=== PATIENT | female | born 1935 | race Caucasian/White ===

== ENCOUNTER 2016-12-13 13:56 | Inpatient (IN) ==
[2016-12-13] MEDS ORDERED: TYLENOL PO PRN (14:03)
[2016-12-13] MEDS ORDERED: ZOFRAN IV PRN (14:03)
[2016-12-13] MEDS ORDERED: LOVENOX SUBQ SCH (14:15)
[2016-12-13] MEDS: POTASSIUM CHLORIDE 10 MEQ in 1/2 NS 1,000 ML IV SCH (16:20)
[2016-12-13 16:47] LABS: URINE SOURCE CATH
[2016-12-13 16:59] LABS: BILIRUBIN URINE NEGATIVE (NEGATIVE); BLOOD URINE SMALL (NEGATIVE); COLOR YELLOW; GLUCOSE URINE NEGATIVE (NEGATIVE); LEUKOCYTES URINE LARGE (NEGATIVE); NITRITE URINE NEGATIVE (NEGATIVE); PH URINE 5.5; PROTEIN URINE 30 mg/dL (NEGATIVE); SP GRAVITY URINE 1.015; TURBIDITY URINE HAZY (CLEAR); UROBILINOGEN URINE NORMAL (NORMAL)
[2016-12-13 17:05] LABS: UR EPITHELIAL CELLS <10 /HPF (<10); URINE BACTERIA 4+ /HPF; URINE CULTURE NEEDED? YES; URINE MICRO REVIEW NEEDED? YES; URINE RBC <10 /HPF (<10); URINE WBC TNTC /HPF (<10)
[2016-12-13 17:21] LABS: URINE CASTS NONE SEEN; URINE CRYSTALS NONE SEEN
[2016-12-13 17:22] LABS: URINE SMALL ROUND CELLS NONE SEEN
[2016-12-13 19:54] LABS: HEMOGLOBIN A1C 5.7 % (4.8-6.0)
[2016-12-13 21:26] LABS: MANUAL DIFF NEEDED? NO
[2016-12-13 21:41] LABS: BASO% 0.2 % (0.0-0.8); EOS# 0.11 X1000 (0.0-0.7); EOS% 1.1 % (0.0-10.0); HEMATOCRIT 39.4 % (37.0-47.0); HEMOGLOBIN 12.6 g/dL (12.0-16.0); IMM GRAN# 0.03 X1000 (0.0-0.04); IMM GRAN% 0.3 % (0.0-0.5); LYMPH# 1.98 X1000 (1.2-3.4); LYMPH% 20.4 % (20.5-51.1); MCH 27.4 PG (27-31); MCV 85.7 FL (81-99); MONO# 1.16 X1000 (0.11-0.59); MONO% 11.9 % (1.7-9.3); MPV 11.3 FL (7.4-10.4); NEUT% 66.1 % (42.2-75.2); PLT 198 X1000 (130-400)
[2016-12-13 21:58] LABS: AGAP 10; ALBUMIN 3.5 g/dL (3.5-5.0); ALKALINE PHOSPHATASE 72 U/L (32-104); BUN 38 mg/dL (8-22); CALCIUM 9.2 mg/dL (8.8-10.2); CHLORIDE 103 mmol/L (98-107); COSMO 299; GOT 29 U/L (10-30); GPT 22 U/L (10-36); POTASSIUM 3.4 mmol/L (3.5-5.1); SODIUM 145 mmol/L (136-145); TCO2 32 mmol/L (25-35); TOTAL BILIRUBIN 0.57 mg/dL (0.20-1.00); TOTAL PROTEIN 6.7 g/dL (6.3-8.3)
[2016-12-13] MEDS: CRESTOR PO SCH (22:48)
[2016-12-13] MEDS: NAMENDA PO SCH (22:48)
[2016-12-13] MEDS: ROCEPHIN 1 GM/NS 1 GM/50 ML IVPB IV SCH (22:54)
--- NOTE | 2016-12-13 23:26 | HISTORY AND PHYSICAL ---
INDICATION FOR ADMISSION: Altered mental status/increasing confusion and lower extremity edema and swelling. HISTORY OF PRESENT ILLNESS: Ms. 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 She presents via ambulance to the office at the request of an interested family member who felt that the patient was having a stroke. This was not recommended as the standard protocol. If the patient was having a medical emergency putting her life, limb or site at risk the emergency room would have been a better evaluation. However the niece of the family directed the patient to the office rather than to the emergency room. Upon further questioning of the sister as medical power of compliance attorney, there has been some nonspecific increase in left lower extremity edema of undetermined clinical significance with some increased pain and mild redness. Also perhaps some more increasing confusion and possible concerns for UTI. The niece had expressed concerns for possible stroke. Knowing the patient's baseline this does not appear to be an active or evolving stroke. The patient is admitted to the internal medicine service for further diagnostic workup based on increasing infusion, probable UTI, left lower extremity edema, nonspecific substernal chest pain and questionable dehydration. MEDICATIONS ON ADMISSION: Including MiraLAX 17 g once daily, Tylenol 325 as needed, Namenda 5 mg 1 p.o. b.i.d., Remeron 30 mg p.o. at bedtime, metformin 500 mg p.o. daily, Crestor 10 mg p.o. daily, Exelon patch 9.5 q.24 once daily, valsartan/hydrochlorothiazide 80/12.5 once daily, Xanax 0.25 mg q.6 hours, metoprolol 50 mg once daily. ALLERGIES: To Lexapro with increased shakiness reported at 5 and 10 mg, Wellbutrin resulting in hallucinations and Seroquel resulting in bizarre and crazy dreams. FAMILY HISTORY: Father 55 [place], mother 91 secondary to fall complications, brother 59 secondary to heart attack and diabetes complications. She has 4 sisters Teresa at 75 without issues, Kimberly 63 without issues, Pat at 73 with arthritis and neuropathy and Suad in 2013. OCCUPATION AND SOCIAL: Patient is retired from [employer] after 40 years in 1995. She remained single the entirety of her life. She is a nonsmoker and a nondrinker. HEALTH MAINTENANCE: Last colonoscopy 2002, last DEXA scan 2014 with osteoporosis of the lumbosacral spine and osteopenia of the left hip. Last eye exam July 2015. Last mammogram is remote in 2004, last Pap smear in 2004. Most recent hemoglobin A1c 2016 at 6.3. Patient with historical stress test in 2005. She has never had a cardiac catheterization. PAST SURGICAL HISTORY: Appendectomy as a teenager, hysterectomy with oophorectomy in 1994, knee surgery on the right in 2008, total knee arthroplasty and left mastectomy secondary to cancer in 1984, a right-sided mastectomy in October 2008. REVIEW OF SYSTEMS: Is unremarkable except that noted within the HPI above. Last annual exam noted to be September 2014. PHYSICAL EXAM: VITAL SIGNS: Blood pressure 130/80, pulse at 101, saturation at 91, temperature 98.6. HEENT: Normocephalic but with dry oral mucosal membranes. Left eye droop is noted. There is no facial droop appreciated on exam. NECK: Soft and supple without lymphadenopathy or bruits. CARDIOVASCULAR: Regular rate and rhythm but somewhat tachycardic. CHEST: Is without wheezes or rhonchi. ABDOMEN: Diffusely and nonspecifically tender without rebound. There is some mild guarding in the suprapubic region. GENITOURINARY/RECTAL: Exams are deferred. EXTREMITY: Shows marked difference in the lower extremity with 42 cm on the left lower extremity and 38 cm at the calf on the right lower extremity. Some nonspecific erythema is also noted in the distal left lower shank. NEUROLOGICAL: Cranial nerves 2-12 are grossly intact. The patient is not alert and oriented towards person, place or time. LABORATORY: Obtained on admission including a positive D-dimer at 6.70 and negative proBNP. Urine is abnormal with protein, blood, leukocytes, white blood cells and 4+ bacteria with clean- catch urine pending. Chemistry is not yet returned and CBC is not yet returned. EKG and chest x- ray are pending. IMPRESSION: An 81-year-old with multiple medical problems with increasing confusion, abnormal urine suggestive of urinary tract infection and nonspecifically elevated D- dimer with left lower extremity unilateral swelling. We will be admitting her to the hospital, reviewing the CMP and the CBC, treating her for urinary tract infection and proceeding with further diagnostic workup and evaluation for lower extremity edema including a venous Doppler ultrasound plus or minus a CT angiogram to rule out the presence of a pulmonary embolism. She historically has had a low vitamin D. This will be checked during this hospitalization and has been historically managed with oral medicine for diabetes. A hemoglobin A1c will be ordered for record. No additional recommendations or concerns at this time. Further diagnostic workup and recommendations pending ongoing evaluation. Total time in office evaluation, coordinating admission, electronic orders ( from office), post-admission evening rounds with family update and dictation of H&P more than 90 minutes total for 12/13/2016 cc: DO AYAZ Alcantar
[2016-12-14] MEDS: XANAX PO PRN ×2 (03:00→18:45)
[2016-12-14] MEDS: POTASSIUM CHLORIDE 10 MEQ in 1/2 NS 1,000 ML IV SCH ×2 (06:12→20:13)
--- NOTE | 2016-12-14 06:33 | EKG Report ---
Test Performed on : 12/14/2016 05:59:37 AM Test Reason : chest pain Blood Pressure : / mmHG Vent. Rate : 097 BPM Atrial Rate : 097 BPM P-R Int : 124 ms QRS Dur : 104 ms QT Int : 374 ms P-R-T Axes : 061 054 111 degrees QTc Int : 474 ms Normal sinus rhythm. Nonspecific T wave abnormality Prolonged QT Abnormal ECG When compared with ECG of 28-JUN-2009 15:21, Questionable change in QRS axis Confirmed by Elizabeth Reynolds MD ([id number]) on 12/14/2016 1:40:34 PM
[2016-12-14 06:40] LABS: INR 1.04
[2016-12-14 07:04] LABS: VITAMIN D 25 HYDROXY 19.4 NG/DL
--- NOTE | 2016-12-14 07:35 | Diag Imaging Result Doc PS360 ---
CHEST-PORTABLE - 12/14/2016 INDICATION: LE edema and swelling TECHNIQUE: COMPARISON: Chest CT 12/29/2011 FINDINGS: Lung volumes are severely low with central crowding. There is probably a trace left basilar pleural effusion. There is a patchy right upper lobe infiltrate.. Heart size remains borderline. Pulmonary vascularity appears grossly normal. IMPRESSION: Patchy right upper lobe infiltrate suggesting pneumonia. Correlate clinically. Electronically signed by Bandar Lopez 12/14/2016 7:32 AM
[2016-12-14] MEDS: GLUCOPHAGE XR PO SCH (09:54)
[2016-12-14] MEDS: POTASSIUM CHLORIDE 20 MEQ/SWI 20 MEQ/100 ML IVPB IV SCH ×2 (10:10→12:00)
[2016-12-14] MEDS: HYDROCHLOROTHIAZIDE PO SCH (10:20)
[2016-12-14] MEDS: TOPROL XL PO SCH (10:20)
[2016-12-14] MEDS: DIOVAN PO SCH (10:20)
[2016-12-14] MEDS: NAMENDA PO SCH ×2 (10:20→20:14)
--- NOTE | 2016-12-14 10:34 | Diag Imaging Result Doc PS360 ---
EXAM: ABDOMEN/PELVIS W/WO CONTRAST - 12/14/2016 HISTORY: right lower quadrant pain TECHNIQUE: With oral contrast. Without and with intravenous contrast. Dose reduction protocol. COMPARISON: None. FINDINGS: There is a large hiatal hernia. There is uncomplicated diverticulosis of the transverse duodenum. There are no substantial abnormalities of the liver, spleen, adrenal glands, or pancreas disease other than mild pancreatic atrophic changes) identified. There are no calcified gallstones or pericholecystic inflammation identified. There is a horseshoe kidney. There is a 1.4 cm cyst at the mid right kidney and there is a 2.9 cm cyst at the upper left kidney. There is no solid renal mass identified. There is no renal stone or hydronephrosis identified. There are no substantial enlarged lymph nodes identified. There is no evidence of bowel obstruction. The appendix by history is surgically absent. There is extensive colonic diverticulosis. There is no evidence of diverticulitis. There is no abscess identified. There is no free air seen. There is a small fat-containing umbilical hernia, there is no bowel containing hernia seen. The rectum is distended with air and retained fecal debris, although is not clear if this represents a fecal impaction. Images of pelvis otherwise show a Garg catheter in the urinary bladder. There is been previous hysterectomy. IMPRESSION: Large hiatal hernia. Uncomplicated duodenal diverticulosis. No bowel obstruction. Extensive colonic diverticulosis. No evidence of diverticulitis. No abscess. No free air. Questionable rectal fecal impaction. Horseshoe kidney. Renal cysts.. No evidence of solid renal mass or hydronephrosis. Electronically signed by Bill Strickland 12/14/2016 10:31 AM
--- NOTE | 2016-12-14 11:14 | Diag Imaging Result Doc PS360 ---
EXAM: CT THORAX W/CONTRAST - 12/14/2016 HISTORY: Widened mediastinum, tracheal dev to right TECHNIQUE: With intravenous contrast. Dose reduction protocol. COMPARISON: 12/29/2011 FINDINGS: There is a large hiatal hernia. There is dependent atelectasis of the bilateral lower lobes. There is a small left pleural effusion. There is some atelectasis at the posterior lateral right upper lobe. There is no pneumothorax identified. There there are some small to borderline mediastinal lymph nodes which appear stable. Other than the hiatal hernia and the mediastinal lymph nodes, there is no mediastinal mass identified. There are some chronic deviation of the tracheal to the right, no etiology for which is apparent, although the possible mild ectasia of the aortic arch. There are apparent filling defects in pulmonary artery branches of the bilateral posterior inferior lower lobes. While this is not a dedicated CT pulmonary angiogram, these are suspicious for pulmonary emboli. IMPRESSION: Apparent pulmonary emboli at bilateral posterior inferior lower lobes. Bilateral dependent atelectasis. Atelectasis at posterior lateral right upper lobe. Small left pleural effusion. Large hiatal hernia. Stable nonspecific small to borderline mediastinal lymph nodes. No other mediastinal mass identified. Results discussed by telephone with Dr. Wakefield at 11:10 AM on 12/14/2016. Electronically signed by Bill Strickland 12/14/2016 11:12 AM
[2016-12-14] MEDS ORDERED: VITAMIN D PO ONE (13:19)
[2016-12-14] MEDS: LOVENOX SUBQ SCH (14:02)
--- NOTE | 2016-12-14 16:40 | ECHO REPORT ---
ORDER DATE: 12/14/2016 INDICATION: Lower extremity edema. Shortness of breath. Altered mental status. FINDINGS: 1. Right atrium is moderately enlarged at 5.1 cm. 2. Moderate tricuspid regurgitation. RV systolic pressure of 58. 3. Normal RV size and systolic function. 4. No significant pulmonic insufficiency. 5. Mild left atrial enlargement at 4.6 cm. 6. No mitral prolapse. Trace mitral regurgitation. 7. Normal LV size, end-diastolic dimension of 4.2. Mild left ventricular hypertrophy. There is posterior and interventricular septal wall thickness of 1.2 and 1.0 cm respectively. Normal LV systolic function. Estimated EF of 60% with normal wall motion. 8. Aortic valve opens well. No evidence of stenosis or insufficiency. 9. Aorta appears normal in visualized segments. 10. No pericardial effusion seen. cc: MD iPpe Martinez DO
--- NOTE | 2016-12-14 17:12 | CONSULTATION ---
DATE OF CONSULTATION: 12/14/2016 REASON FOR CONSULT: This patient is known to us with a T1c N0 right breast cancer with a newly diagnosed bilateral pulmonary embolism. She had a prior postoperative DVT and PE in 1996 but has been off of Coumadin for several years. HISTORY OF PRESENT ILLNESS: This is an elderly 81-year-old female with severe dementia who we have seen in the past for T1c N0 right breast cancer diagnosed in 2008 status post mastectomy. She also has a remote history of left breast cancer in 1984 status post left mastectomy as well. The patient has a history of left lower extremity DVT and PE diagnosed in 1996 after a knee surgery. She is status post anticoagulation. The patient was brought to the emergency room with altered mental status as well as left lower extremity swelling. The D-dimer was 6.[address] chest, abdomen and pelvis has been performed which shows apparent pulmonary emboli at bilateral posterior inferior lower lobes. It showed bilateral dependent atelectasis and small left effusion with a large hiatal hernia and small to borderline mediastinal lymph nodes. An ultrasound of her lower extremity has been ordered and is pending. Patient has been placed on Lovenox 80 mg b.i.d. and hypercoagulable workup has been obtained and is currently pending. Patient is quite sedentary and she apparently lives with 2 of her sisters and she does not get up and move around much during the day. Denies any chest pain, clinical bleeding, black, bright red stools or worsening dyspnea. REVIEW OF SYSTEMS: Negative unless indicated in the HPI. ALLERGIES: Lexapro and Wellbutrin. HOME MEDICATIONS: Namenda, Remeron, metformin, Crestor, MiraLAX, Tylenol, Exelon patch and Xanax and metoprolol. FAMILY/SOCIAL HISTORY: Patient has a very supportive family. She lives with 2 of her sisters. She is a nonsmoker and nondrinker. PAST MEDICAL HISTORY: Bilateral breast cancer status post bilateral mastectomy , previous DVT and PE postoperatively in 1996. She has not been on any recent anticoagulation. Remote history of ovarian cancer in 1996. Osteoporosis. PHYSICAL EXAMINATION: Vital Signs: Stable. HEENT: Head is normocephalic, atraumatic. Pupils equal, round, symmetric. Left eye droop is noted. Cardiovascular: S1, S2 audible to auscultation. No heaves, lifts, thrills, or murmurs. Pulmonary: Breath sounds clear to auscultation. Normal respiratory effort. Abdomen: Soft, nontender. Positive bowel sounds in all 4 quadrants. Extremities: Left lower extremity with some swelling. Neurologic: Patient is alert. She is not oriented to person, place, or time. Musculoskeletal: Patient moves all extremities. Skin: No petechiae, ecchymosis or rash. DIAGNOSTIC DATA: CT shows bilateral pulmonary emboli with large hiatal hernia and bilateral dependent atelectasis. WBC is 9.72 hemoglobin 12.6, hematocrit 39.4, platelet count is 198,000. Sodium 145, potassium 3.4, BUN 38, creatinine 0.7. ASSESSMENT AND PLAN: 1. Bilateral pulmonary embolism. Currently on Lovenox. A hypercoagulable workup is pending although it is very likely related to patient's sedentary lifestyle. She has had a prior DVT and pulmonary embolism in 1996 after surgery but was not currently on any anticoagulation. Dopplers of lower extremities are also pending to rule out DVTs. 1. Dementia, altered mental status. Per primary team. 2. Bilateral breast cancer status post bilateral mastectomy and 10 years of aromatase inhibitor. 3. Debility. Physical therapy has been ordered for patient. Dictated by CHARBEL Bond for Sacha Kang MD cc: CHARBEL Bond MD [facility]. Johnson, DO [facility]
--- NOTE | 2016-12-14 19:34 | PROGRESS NOTE ---
DATE: 12/14/2016 HOSPITAL DAY: #2. INDICATION FOR PROLONGED HOSPITALIZATION: Outstanding left lower extremity venous Doppler ultrasound and abnormal findings on CAT scan. SUBJECTIVE: Over the past 24 hours, the patient has been evaluated with some additional laboratory which follows. Urine culture has returned as unremarkable despite abnormal appearance on admission. Based on exam today at the bedside, she was noted to have persistence of right lower quadrant pain of undetermined clinical significance and in need of follow up as it relates to nonspecific abnormalities on chest x-ray. A CAT scan was performed of both the chest and the abdomen and pelvis, the CT scan of the chest demonstrating apparent bilateral posterior lower lobe pulmonary embolisms, some atelectasis in the posterior right upper lateral lobe , and a small pleural effusion as well as large hiatal hernia and nonspecific borderline mediastinal lymph nodes, but without evidence of mass. The CT scan of the abdomen obtained for right lower quadrant pain demonstrating no evidence of acute abnormality with the exception of uncomplicated duodenal diverticulosis, extensive colonic diverticulosis, but no evidence of diverticulitis, and questionable fecal impaction. OBJECTIVE: Vital signs: This morning, blood pressure 124/66, saturating 93% on room air. Temperature 99 degrees, pulse at 99, respirations at 18. Current vitals this afternoon at 15:50, blood pressure 100/79, respiration rate at 20, pulse 71, temperature at 97.2 degrees. HEENT: Is unremarkable. Chronic left eyelid droop. Oral mucosal membranes are less tachy and no longer dry. Cardiovascular: Regular rate and rhythm with a soft 2/6 murmur at the mid right sternal border without radiation. Abdomen: Nonspecific epigastric pain and right lower quadrant pain without rebound or guarding. Extremities: Palpable tenderness in the anterior shins bilaterally. Decreased erythema and decreased swelling in the left lower extremity. Neurological: Cranial nerves are not assessed. Additional laboratory, including a B12 is normal. Vitamin D noted to be low at 19.4. Urinalysis noted to be negative for growth. IMPRESSION: 1. Positive D-dimer with left lower extremity swelling. Venous Doppler ultrasound is pending. However, CT scan, not CT angiogram obtained for tracheal deviation and widened mediastinum demonstrating borderline mediastinal adenopathy as well as what appears to be apparent bilateral lower lobe pulmonary emboli. Etiology is queried. Patient is a breast cancer survivor. Hypercoagulable workup is pending. She has been initiated on low molecular weight heparin at 1 mg/kg b.i.d. and will be transitioned over to Xarelto. Pending final disposition of left lower extremity venous Doppler ultrasound. 2. Abdominal pain localized to the right lower quadrant without significant findings. Extensive duodenal and sigmoid diverticulosis without evidence of diverticulitis. 3. Vitamin D deficiency. Initiation of supplemental vitamin D 50,000 international units once weekly. 4. Abnormal urine without evidence of a positive urine culture. 5. Abnormal findings on CT scan suggestive of potential right upper lobe pneumonia. This is radiographic in nature. Patient is without fever. Patient is without elevated white blood cell count. I would favor watchful waiting at this point. 6. Disposition: Lengthy discussion with the patient's sister who continues to care for the patient home. I do think that this might be problematic in light of potential left lower extremity deep venous thrombosis as well as bilateral pulmonary emboli. The patient's sister is fairly adamant about taking the patient home and continuing to care for at home. Although this point would not be against medical advice, it will be strongly discourage. We did discuss potential future scenarios including readmission and discharging to rehab and then back to home and then subsequent readmissions resulting in a home failure and rehab failure and long-term consideration for placement. We continue to wait for the final results of the left lower venous Doppler ultrasound for final disposition. The sister understands the course of treatment and plan. No further issues at this time. total time with patient, bedside, discussion and dictation 40minutes cc: DO AYAZ Alcantar
[2016-12-14] MEDS: DOXYCYCLINE 100 MG in NS 250 ML IV SCH (20:12)
[2016-12-14] MEDS: CRESTOR PO SCH (20:14)
[2016-12-14] MEDS: ROCEPHIN 1 GM/NS 1 GM/50 ML IVPB IV SCH (23:26)
[2016-12-15] MEDS: XANAX PO PRN ×3 (00:49→19:59)
[2016-12-15] MEDS: LOVENOX SUBQ SCH ×2 (00:49→11:31)
[2016-12-15] MEDS: DOXYCYCLINE 100 MG in NS 250 ML IV SCH ×2 (05:49→17:34)
[2016-12-15 06:52] LABS: MANUAL DIFF NEEDED? NO
[2016-12-15 07:01] LABS: BASO% 0.5 % (0.0-0.8); EOS# 0.28 X1000 (0.0-0.7); EOS% 3.3 % (0.0-10.0); HEMATOCRIT 38.2 % (37.0-47.0); HEMOGLOBIN 12.1 g/dL (12.0-16.0); LYMPH# 1.57 X1000 (1.2-3.4); LYMPH% 18.6 % (20.5-51.1); MCH 26.8 PG (27-31); MCHC 31.7 g/dL (33-37); MCV 84.7 FL (81-99); MONO% 11.8 % (1.7-9.3); MPV 11.1 FL (7.4-10.4); NEUT% 65.8 % (42.2-75.2); PLT 192 X1000 (130-400); RBC 4.51 XMIL (4.2-5.4)
[2016-12-15 07:03] LABS: INR 1.06; PROTIME 11.2 Seconds (9.2-11.7)
[2016-12-15 07:10] LABS: AGAP 14; ALKALINE PHOSPHATASE 63 U/L (32-104); BUN 19 mg/dL (8-22); CALCIUM 8.2 mg/dL (8.8-10.2); CHLORIDE 103 mmol/L (98-107); COSMO 290; GOT 25 U/L (10-30); GPT 19 U/L (10-36); MAGNESIUM 2.3 mg/dL (1.5-2.7); POTASSIUM 3.9 mmol/L (3.5-5.1); SODIUM 144 mmol/L (136-145); TCO2 27 mmol/L (25-35); TOTAL BILIRUBIN 0.48 mg/dL (0.20-1.00); TOTAL PROTEIN 6.2 g/dL (6.3-8.3)
[2016-12-15] MEDS: POTASSIUM CHLORIDE 10 MEQ in 1/2 NS 1,000 ML IV SCH ×2 (08:06→13:50)
[2016-12-15] MEDS: NAMENDA PO SCH ×2 (08:44→19:59)
[2016-12-15] MEDS: HYDROCHLOROTHIAZIDE PO SCH (08:44)
[2016-12-15] MEDS: GLUCOPHAGE XR PO SCH (08:44)
[2016-12-15] MEDS: TOPROL XL PO SCH (08:45)
[2016-12-15] MEDS: DIOVAN PO SCH (08:45)
[2016-12-15] MEDS: EXELON 9.5MG/24HRS TD SCH (16:47)
--- NOTE | 2016-12-15 18:32 | PROGRESS NOTE ---
DATE: 12/15/2016 Hospital day #3. Indication for a prolonged hospitalization. Ongoing treatment for bilateral pulmonary embolism, source unknown. Venous Doppler ultrasound of left lower extremity is still pending. She will be transitioned to oral Xarelto as definitive treatment for acute PE/DVT, and then ongoing for long-term prophylaxis. Vitals this morning: Blood pressure 133/57, saturating 96% on room air, respirations at 18, pulse at 88, temperature at 98.1 degrees. Blood pressure at 12:50 today 110/64, with respiration rate at 87. I's and O's are reviewed, 1021 in, and 575 out for +446. Laboratory for today: White blood cell count 8.46, hemoglobin and hematocrit 12.1 and 38.2, with platelets at 192,000. PT/INR at 11.2 and 1.06. Sodium 147, potassium 3.9, chloride 103, bicarb 27, BUN and creatinine at 19 and 0.5. Fingersticks ranging between 96 and 126. AST and ALT at 25 and 19. Vitamin B12 at 16:58. Vitamin D low at 19.4, homocysteine appropriate at 8.1. Initial laboratory and a hypercoagulable workup including cardiolipin antibody, phospholipin antibody IgM at 13.3, and phospholipid antibody IgG at less than 9.4. These are considered negative. Cardiac echo demonstrating evidence of pulmonary hypertension based on systolic pressure at 58, with mild right atrial enlargement, mild left atrial enlargement, left ventricular hypertrophy is suggested, and normal LV systolic function with an estimated ejection fraction at 60%. No other evidence of acute disease is noted. EXAM: HEENT: Unremarkable. Cardiovascular: Regular rate and rhythm. Lungs: Clear. Abdomen: Soft with nonspecific tenderness without rebound in the right lower quadrant. Extremities: With marked improvement in lower extremity edema. Also marked improvement in the appearance of the left lower extremity which was slightly erythematous and swollen on exam. Presence of a pretibial palpatory tenderness is noted. Cranial nerves are not assessed. Ongoing consultative note from Hematology/Oncology is reviewed. I also spoken personally with Dr. Jorge Luis soto, who is in agreement with transitioning over to oral Xarelto as acute treatment for pulmonary embolism. IMPRESSION: 1. Bilateral pulmonary embolism, etiology queried. Differential diagnosis including trauma, stasis or hypercoagulable state are all re-discussed with director of sports performance/oncologist. It is our medical opinion that this likely is due to chronic stasis and it will not be surprising if the venous Doppler ultrasound of left lower extremities is consistent with historical and/or acute clot. She will be transitioned off of low molecular weight heparin to Xarelto 50 mg twice daily for the next 21 days and then transitioning to single-dose therapy 20 mg once daily thereafter for a minimum of 6 months with re-evaluation of the lower extremity plus or minus re-evaluation of the pulmonary system to ensure clearing of clot. I also discussed with Hematology/Oncology the possibility of lifelong prophylaxis based on historical deep venous thrombosis and now recurrent deep venous thrombosis, but decades later. The remainder of the hypercoagulable workup is pending at this time. 2. Low vitamin D. Started on supplement for the next 8-plus weeks. 3. Abnormal appearing urine on admission in the presence of no fever and negative white blood cell count with no initial growth as reported by culture. This has been amended and additional incubation is ongoing. She continues on Rocephin and doxycycline. 4. Infiltrative changes in the right upper lobe on CT scan. Etiology is queried. Cannot rule out early pneumonic infiltrate. She continues on Rocephin and doxycycline. Low threshold to transition to oral doxycycline at the time of discharge and continue for a total of 7-10 days. 5. Pulmonary hypertension as demonstrated by cardiac echo with PA pressures above 50 mmHg, early evidence of right atrial and left atrial enlargement. Minimal evidence of valvular heart disease with the exception of trivial tricuspid regurgitation. 6. Known and chronic non healing fracture of the right shoulder. 7. Problems with living alone. 8. Dementia ongoing and progressive. DISPOSITION: The patient is anticipated for potential discharge tomorrow to rehab facility. It has been discussed with the family that this would be the best option for the patient in that there are issues at home that need to be addressed prior to the patient returning to home. We did discuss the possibility of home health care versus hired full-time caregiver versus potentially transitioning to palliative/hospice care. We will continue to follow in this regard. I did meet an out of town sister from [place] today who I had not met previously. She seems of very engaged and very concerned. We will continue to follow in this regard as well. No additional recommendations or concerns at this time. cc: Pipe Wakefield,
[2016-12-15] MEDS: CRESTOR PO SCH (19:59)
[2016-12-15] MEDS: XARELTO PO SCH (20:02)
[2016-12-16] MEDS: POTASSIUM CHLORIDE 10 MEQ in 1/2 NS 1,000 ML IV SCH ×2 (01:10→04:47)
[2016-12-16] MEDS: ROCEPHIN 1 GM/NS 1 GM/50 ML IVPB IV SCH (01:10)
[2016-12-16] MEDS: DOXYCYCLINE 100 MG in NS 250 ML IV SCH (06:07)
[2016-12-16] MEDS: DIOVAN PO SCH (08:22)
[2016-12-16] MEDS: HYDROCHLOROTHIAZIDE PO SCH (08:22)
[2016-12-16] MEDS: EXELON 9.5MG/24HRS TD SCH (08:22)
[2016-12-16] MEDS: GLUCOPHAGE XR PO SCH (08:23)
[2016-12-16] MEDS: NAMENDA PO SCH (08:23)
[2016-12-16] MEDS: XARELTO PO SCH (08:23)
[2016-12-16] MEDS: TOPROL XL PO SCH (08:24)
[2016-12-16 09:36] VITALS: BP 143/68
--- NOTE | 2016-12-16 10:43 | DISCHARGE SUMMARY ---
ADMISSION DATE: 12/13/2016 DISCHARGE DATE: 12/16/2016 DISCHARGE DIAGNOSES: 1. Bilateral pulmonary embolism, etiology queried. Hypercoagulable workup in progress. Left lower extremity venous Doppler ultrasound report pending at the time of discharge. 2. Left lower extremity edema and erythema presumed to be secondary to deep venous thrombosis. 3. Abnormal appearing urine on admission with initial culture noted to be negative. The culture returned at greater than 100,000 with strep viridans as well as less than 20,000 colony- forming units of yeast. She will be continued on doxycycline 100 mg twice daily for pulmonary processes pending return of strep sensitivities. 4. Radiographic evidence of early infiltrate in the right hemithorax suggestive of community- acquired pneumonia although, patient afebrile, hemodynamically stable, and negative white blood cell count. She was treated on admission with Rocephin x3 days and will be continued on doxycycline. 5. Pulmonary hypertension with biventricular pressure at 58 mmHg. Moderate tricuspid regurgitation secondary to pulmonary hypertension. Mildly enlarged right atrium at 5.1 cm, mildly enlarged left atrium at 4.6 cm. No evidence of systolic failure, ejection fraction at 60%. 6. End-stage dementia exacerbated by acute illness as above. 7. Low vitamin D level at 19.4. Initial 50,000 international unit dose provided within the context of hospitalization. 8. Hypokalemia, replaced intravenously. PROCEDURES DURING ADMISSION: Cardiac echo, CT scan of the chest, abdomen, and pelvis and a venous Doppler ultrasound of left lower extremity results are pending. DISCHARGE MEDICATIONS: Alprazolam 0.25 mg q.6 h. p.r.n., Exelon patch 9.5 mg q.24 h. once daily, memantine 5 mg twice daily, metformin 500 mg once daily, rosuvastatin 10 mg once daily, metoprolol 50 mg once daily, Tylenol 650 mg p.o. q.6 h. p.r.n., valsartan/hydrochlorothiazide 80/12.5 once daily, Xarelto 15 mg twice daily for 21 days, then transitioning to 20 mg once daily, and doxycycline 100 mg p.o. b.i.d., #14. CONSULTATIONS DURING ADMISSION: Hematology/Oncology for evaluation of hypercoagulable state as it relates to history of breast cancer. HOSPITAL COURSE: Ms. Gaming was brought to the Internal Medicine office on the afternoon of 12/13/2016 with some alleged altered mental status, difficulty ambulating secondary to left lower extremity edema and pain. She was admitted for further evaluation and found to have some nonspecific abnormalities on laboratory work as well as abnormal appearing urine. Based on concern for possible DVT of the left lower extremity secondary to prolonged stasis and neoplastic history, a D-dimer was obtained and it was markedly elevated. Following day some additional studies including a CT scan of the chest and abdomen and pelvis for widened mediastinum, tracheal deviation, and right lower quadrant pain were obtained. Findings as noted in the record although this was not a dedicated CT angiogram, the appearance according to the radiologist was that of bilateral pulmonary emboli. These were highly suspect. This would be correlated with her history of left lower extremity pain, swelling, and elevated D-dimer. She was subsequently started on low molecular weight heparin and then transitioned to oral Xarelto to continue as an outpatient. Additional studies for lower extremity swelling and shortness of breath were obtained including a cardiac echo with findings as noted in the record. Urine culture initially returning as negative. Subsequent observation of urine culture consistent with strep viridans and small amount of yeast. DISPOSITION: The patient is to transitioned to rehab facility in [facility] for 14-21 days of rehab and then on to home with home health and perhaps full-time caregiver as well. The family understands the course of treatment and plan. No further issues at this time. Note is dictated on the morning of discharge. cc: Pipe Wakefield DO
[2016-12-16] MEDS: XANAX PO PRN (11:24)
--- NOTE | 2016-12-21 08:36 | Extremity Venous Study ---
PROCEDURE NAME: Venous U/S Bilateral Legs - 12/14/2016 REFERRING PHYSICIAN: Dr. Enzo Wakefield. INTERPRETING PHYSICIAN: Dr. Chris Weinberg. DIRECTOR INFORMATICS: Zoila. FINDINGS: Patient has edema in the left leg, shortness of breath, elevated D-dimer. The patient has dementia. The bilateral lower extremity images are accomplished. The common femoral, superficial femoral, deep femoral, popliteal, posterior tibial, peroneal, and greater saphenous are imaged bilaterally. Doppler is used to evaluate the veins for spontaneity, phasicity, and distal augmentation. The patient has dementia and could not cooperate throughout the exam. All veins identified are compressible. No intraluminal clot is seen. INTERPRETATION: No evidence of deep or superficial venous thrombosis in either lower extremity in the veins identified. cc: MD Pipe Rollins, DO
== END 2016-12-16 11:40 | disposition home health service (06) ==
LOC: DIRADM 13:56 → 3N 14:45
PROVIDERS: ADMIT Internal Medicine; ATTEND Internal Medicine